=== PATIENT | female | born 1965 | race African-American/Black ===

== ENCOUNTER 2018-01-04 17:22 | Emergency (ER) | payer MEDICAID ==
[~2018-01-04] VITALS: Ht 167.6 cm; Wt 89.0 kg
[~2018-01-04 17:22] MED LIST: AMLO5TAB88 PO; ASPI-1159 PO; ATOR40TA70 PO; CARV6.2548 PO; CLOP75TA33 PO; DOCU-138 PO; GABA-533 PO; HYDR-519 PO; IBUP-2030 PO
[2018-01-04 19:30] LABS: CHLORIDE 105 mEq/L (98-107)
[2018-01-04 19:32] LABS: BASOPHILS % 0.3 % (0.0-2.0); HEMATOCRIT. 34.8 % (36.0-48.0); HEMOGLOBIN. 11.8 g/dL (12.0-16.0); LYMPHOCYTES % 29.3 % (20.0-50.0); MEAN CORPUSCULAR HEMOGLOBIN 31.8 pg (28.0-32.0); MEAN CORPUSCULAR VOLUME 93.4 fL (81.0-99.0); MEAN PLATELET VOLUME 9.8 fl (7.4-10.4); MONOCYTES % 10.2 % (2.0-8.0); NEUTROPHILS % 59.2 % (40.0-76.0); PLATELET 288 x1000/uL (130-400); RED BLOOD CELL COUNT 3.72 mill/uL (4.2-5.4); RED CELL DISTRIBUTION WIDTH 13.2 % (11.6-14.6)
[2018-01-04] MEDS ORDERED: KETOROLAC 60MG/2ML VIAL IM ONE (20:30)
[2018-01-04 20:47] LABS: CLARITY URINE CLOUDY (CLEAR); COLOR URINE YELLOW (YELLOW); KETONES URINE NEGATIVE (NEGATIVE); LEUKOCYTE ESTERASE URINE TRACE (NEGATIVE); NITRITE URINE NEGATIVE (NEGATIVE); OCCULT BLOOD URINE NEGATIVE (NEGATIVE); PROTEIN URINE NEGATIVE (NEGATIVE); SPECIFIC GRAVITY URINE 1.024 (1.005-1.030)
[2018-01-04 21:26] VITALS: BP 156/72
== END 2018-01-04 21:29 | disposition home or self-care (01) ==
LOC: ER 17:22
DX: S39.012A Strain of muscle, fascia and tendon of lower back, initial encounter (principal); E78.00 Pure hypercholesterolemia, unspecified; E11.9 Type 2 diabetes mellitus without complications; I11.9 Hypertensive heart disease without heart failure; Z95.5 Presence of coronary angioplasty implant and graft; W07.XXXA Fall from chair, initial encounter; Y93.89 Activity, other specified; Y92.018 Other place in single-family (private) house as the place of occurrence of the external cause
CPT/HCPCS: 36415; 80053; 81003; 85025; J1885; Z7610

== ENCOUNTER 2018-06-10 09:26 | Inpatient (IN) | payer MEDICAID ==
[~2018-06-10] VITALS: Ht 182.9 cm; Wt 93.2 kg
[2018-06-10] MEDS ORDERED: ACETAMINOPHEN 650MG SUPP PR STA (10:11)
[2018-06-10] MEDS ORDERED: PIPERACILLIN/TAZ 3.375G PREMIX 50 ML IV ONE (10:15)
[2018-06-10] MEDS ORDERED: VANCOMYCIN 1 G PREMIX 200 ML IV ONE (10:15)
[2018-06-10] MEDS ORDERED: SODIUM CHLORIDE 0.9% 1000ML BAG (SEPSIS BOLUS) IV ONE (10:15)
[2018-06-10 10:26] LABS: HEMATOCRIT. 37.1 % (36.0-48.0); HEMOGLOBIN. 12.5 g/dL (12.0-16.0); MEAN CORPUSCULAR HEMOGLOBIN 32.8 pg (28.0-32.0); MEAN CORPUSCULAR VOLUME 96.9 fL (81.0-99.0); MEAN PLATELET VOLUME 10.3 fl (7.4-10.4); PLATELET 165 x1000/uL (130-400); RED BLOOD CELL COUNT 3.82 mill/uL (4.2-5.4); RED CELL DISTRIBUTION WIDTH 14.5 % (11.6-14.6)
[2018-06-10 10:34] LABS: CHLORIDE 99 mEq/L (98-107); INR 1.2; PROTHROMBIN TIME 11.7 sec (9.1-11.1)
[2018-06-10 10:38] LABS: ETHANOL BLOOD < 10 mg/dL
[2018-06-10 10:57] LABS: PLATELET ESTIMATE NORMAL
[2018-06-10 11:32] LABS: BG BASE EXCESS -3.7 mmol/L (-2.0-2.0); BG CARBOXYHEMOGLOBIN 0.3 % (0.5-1.5); BG FRACTION INSPIRED OXYGEN 21; BG HCO3 ACT 18.9 mmol/L (22.0-26.0); BG METHEMOGLOBIN 0.5 % (0.0-1.5); BG OXYHEMOGLOBIN 96.2 % (94.0-97.0); BG PCO2 27.2 mmHg (35.0-45.0); BG PH 7.459 (7.350-7.450); BG PO2 87.6 mmHg (75.0-100.0); BG SAMPLE SITE RIGHT RADIAL; BG TOTAL HEMOGLOBIN 12.4 g/dL (12.0-18.0); BG VENT MODE ROOM AIR
[2018-06-10 16:05] VITALS: BP 161/95
[2018-06-10 16:18] VITALS: BP 161/95
[2018-06-10] MEDS ORDERED: CLONIDINE 0.2MG TABLET PO PRN (17:15)
[2018-06-10] MEDS ORDERED: ACETAMINOPHEN 650MG SUPP PR PRN (17:15)
[2018-06-10] MEDS ORDERED: IPRATROPIUM/ALBUTEROL 0.5-3(2.5)MG/3ML NEB HHN PRN (17:15)
[2018-06-10] MEDS: SODIUM CHLORIDE 0.45% 1,000 ML IV SCH (17:50)
[2018-06-10 18:01] VITALS: BP 200/93
[2018-06-10] MEDS ORDERED: LEVOFLOXACIN 500MG PREMIX 100 ML IV SCH (18:30)
[2018-06-10 20:00] VITALS: BP 161/77
[2018-06-10] MEDS: IPRATROPIUM/ALBUTEROL 0.5-3(2.5)MG/3ML NEB HHN SCH (20:25)
[2018-06-10 20:29] LABS: CLARITY URINE CLEAR (CLEAR); COLOR URINE YELLOW (YELLOW); KETONES URINE 3+ (NEGATIVE); LEUKOCYTE ESTERASE URINE NEGATIVE (NEGATIVE); NITRITE URINE NEGATIVE (NEGATIVE); OCCULT BLOOD URINE 2+ (NEGATIVE); PROTEIN URINE 1+ (NEGATIVE); SPECIFIC GRAVITY URINE 1.025 (1.005-1.030); UROBILINOGEN URINE 0.2 E.U./dL (0.2-1.0)
[2018-06-10] MEDS: CARVEDILOL 6.25 MG TABLET PO SCH (20:38)
[2018-06-10 20:51] LABS: *AMPHETAMINES SCREEN URINE NEGATIVE (NEGATIVE); *BARBITURATES SCREEN URINE NEGATIVE (NEGATIVE); *BENZODIAZEPINES SCREEN URINE NEGATIVE (NEGATIVE); *COCAINE SCREEN URINE NEGATIVE (NEGATIVE); METHADONE URINE SCREEN NEGATIVE (NEGATIVE); OPIATES URINE SCREEN NEGATIVE (NEGATIVE); PHENCYCLIDINE URINE SCREEN NEGATIVE (NEGATIVE)
[2018-06-10 20:52] LABS: CANNABINOID URINE SCREEN NEGATIVE (NEGATIVE)
[2018-06-10 22:00] VITALS: BP 157/86
[2018-06-11] VITALS (12 sets, daily range): BP systolic 125–176; BP diastolic 63–89
[2018-06-11] MEDS: ACETAMINOPHEN 325MG TABLET PO PRN ×3 (00:22→21:26)
[2018-06-11] MEDS: IPRATROPIUM/ALBUTEROL 0.5-3(2.5)MG/3ML NEB HHN SCH ×6 (00:25→20:30)
[2018-06-11 06:16] LABS: HEMATOCRIT 32.3 % (36.0-48.0); HEMOGLOBIN 11.1 g/dL (12.0-16.0); MEAN CORPUSCULAR HEMOGLOBIN 33.1 pg (28.0-32.0); MEAN CORPUSCULAR VOLUME 96.3 fL (81.0-99.0); PLATELET 113 x1000/uL (130-400); RED BLOOD CELL COUNT 3.35 mill/uL (4.2-5.4); RED CELL DISTRIBUTION WIDTH 14.3 % (11.6-14.6)
[2018-06-11 06:56] LABS: CHLORIDE 104 mEq/L (98-107)
[2018-06-11] MEDS: ENOXAPARIN 30MG/0.3ML SYR SUBCUT SCH ×2 (09:25→21:25)
[2018-06-11] MEDS: CARVEDILOL 6.25 MG TABLET PO SCH ×2 (09:26→21:26)
[2018-06-11] MEDS: ATORVASTATIN CALCIUM 40MG TABLET PO SCH (09:26)
[2018-06-11] MEDS: PIPERACILLIN/TAZ 3.375G PREMIX 50 ML IV SCH ×3 (11:38→23:20)
[2018-06-11] MEDS: ASPIRIN 81MG TABLET PO SCH (12:04)
[2018-06-11] MEDS: AMLODIPINE 10MG TABLET PO SCH (12:05)
[2018-06-11] MEDS: CLOPIDOGREL 75MG TABLET PO SCH (12:05)
[2018-06-11] MEDS: SODIUM CHLORIDE 0.45% 1,000 ML IV SCH (13:15)
[2018-06-11] MEDS: FUROSEMIDE 20MG TABLET PO SCH (17:06)
[2018-06-11] MEDS ORDERED: LORAZEPAM 2MG/ML CPJ IV PRN (21:15)
[2018-06-12] VITALS (12 sets, daily range): BP systolic 96–166; BP diastolic 53–96
[2018-06-12] MEDS: HYDROCODONE/ACETAMINOPHEN 5/325MG TABLET PO PRN ×2 (03:23→13:51)
[2018-06-12] MEDS: PIPERACILLIN/TAZ 3.375G PREMIX 50 ML IV SCH (06:15)
[2018-06-12 07:34] LABS: HEMATOCRIT. 30.8 % (36.0-48.0); HEMOGLOBIN. 10.5 g/dL (12.0-16.0); MEAN CORPUSCULAR HEMOGLOBIN 33.1 pg (28.0-32.0); MEAN CORPUSCULAR VOLUME 97.5 fL (81.0-99.0); MEAN PLATELET VOLUME 11.1 fl (7.4-10.4); PLATELET 105 x1000/uL (130-400); RED BLOOD CELL COUNT 3.16 mill/uL (4.2-5.4); RED CELL DISTRIBUTION WIDTH 14.5 % (11.6-14.6)
[2018-06-12 08:02] LABS: CHLORIDE 103 mEq/L (98-107)
[2018-06-12 08:13] LABS: LDL CHOLESTEROL 56 mg/dL (5-100)
[2018-06-12 08:15] LABS: HDL CHOLESTEROL 13 mg/dL (40-59)
[2018-06-12] MEDS: FOLIC ACID 1MG TABLET PO SCH (09:19)
[2018-06-12] MEDS: ASPIRIN 81MG TABLET PO SCH (09:19)
[2018-06-12] MEDS: THIAMINE HCL 100MG TABLET PO SCH (09:19)
[2018-06-12] MEDS: FUROSEMIDE 20MG TABLET PO SCH ×2 (09:20→16:52)
[2018-06-12] MEDS: MULTIVITAMINS,THER W-MINERALS TABLET PO SCH (09:20)
[2018-06-12] MEDS: ATORVASTATIN CALCIUM 40MG TABLET PO SCH (09:20)
[2018-06-12] MEDS: CARVEDILOL 6.25 MG TABLET PO SCH ×2 (09:20→21:02)
[2018-06-12] MEDS: NICOTINE 14MG PATCH TD SCH (09:21)
[2018-06-12] MEDS: SODIUM CHLORIDE 0.45% 1,000 ML IV SCH (09:21)
[2018-06-12] MEDS: CLOPIDOGREL 75MG TABLET PO SCH (09:22)
[2018-06-12] MEDS: ENOXAPARIN 30MG/0.3ML SYR SUBCUT SCH ×2 (09:22→21:03)
[2018-06-12] MEDS: AMLODIPINE 10MG TABLET PO SCH (09:24)
[2018-06-12] MEDS ORDERED: LEVOFLOXACIN 500MG PREMIX 100 ML IV SCH (13:00)
[2018-06-12] MEDS ORDERED: POTASSIUM CHLORIDE 20MEQ TABLET SR PO SCH (13:30)
[2018-06-12] MEDS: LEVOFLOXACIN 500MG PREMIX 100 ML IV SCH (15:36)
[2018-06-12 16:29] LABS: PLATELET ESTIMATE SLIGHTLY DECREASED
[2018-06-12] MEDS: ACETAMINOPHEN 325MG TABLET PO PRN (19:36)
[2018-06-13] VITALS (12 sets, daily range): BP systolic 110–142; BP diastolic 39–74
[2018-06-13] MEDS: HYDROCODONE/ACETAMINOPHEN 5/325MG TABLET PO PRN ×4 (01:22→20:15)
[2018-06-13] MEDS: SODIUM CHLORIDE 0.45% 1,000 ML IV SCH (06:18)
[2018-06-13 06:20] LABS: HEMATOCRIT. 29.7 % (36.0-48.0); HEMOGLOBIN. 10.1 g/dL (12.0-16.0); MEAN CORPUSCULAR HEMOGLOBIN 32.9 pg (28.0-32.0); MEAN CORPUSCULAR VOLUME 97.1 fL (81.0-99.0); MEAN PLATELET VOLUME 10.9 fl (7.4-10.4); PLATELET 129 x1000/uL (130-400); RED BLOOD CELL COUNT 3.06 mill/uL (4.2-5.4); RED CELL DISTRIBUTION WIDTH 14.4 % (11.6-14.6)
[2018-06-13 06:24] LABS: CHLORIDE 101 mEq/L (98-107)
[2018-06-13] MEDS: ASPIRIN 81MG TABLET PO SCH (08:46)
[2018-06-13] MEDS: FUROSEMIDE 20MG TABLET PO SCH ×2 (08:46→16:28)
[2018-06-13] MEDS: CARVEDILOL 6.25 MG TABLET PO SCH ×2 (08:46→20:09)
[2018-06-13] MEDS: FOLIC ACID 1MG TABLET PO SCH (08:47)
[2018-06-13] MEDS: CLOPIDOGREL 75MG TABLET PO SCH (08:47)
[2018-06-13] MEDS: MULTIVITAMINS,THER W-MINERALS TABLET PO SCH (08:47)
[2018-06-13] MEDS: THIAMINE HCL 100MG TABLET PO SCH (08:47)
[2018-06-13] MEDS: ATORVASTATIN CALCIUM 40MG TABLET PO SCH (08:47)
[2018-06-13] MEDS: ENOXAPARIN 30MG/0.3ML SYR SUBCUT SCH ×2 (08:48→20:09)
[2018-06-13] MEDS: AMLODIPINE 10MG TABLET PO SCH (08:48)
[2018-06-13] MEDS: NICOTINE 14MG PATCH TD SCH (08:51)
[2018-06-13] MEDS ORDERED: POTASSIUM CHLORIDE 20MEQ TABLET SR PO SCH (09:05)
[2018-06-13 10:16] LABS: PLATELET ESTIMATE SLIGHTLY DECREASED
[2018-06-13] MEDS: LEVOFLOXACIN 500MG PREMIX 100 ML IV SCH (15:00)
[2018-06-13] MEDS: ACETAMINOPHEN 325MG TABLET PO PRN (16:29)
[2018-06-14] VITALS: BP_SYST 142; BP_DIAS 68; BP_DIAS 75
[2018-06-14] MEDS: SODIUM CHLORIDE 0.45% 1,000 ML IV SCH (01:15)
[2018-06-14 02:00] VITALS: BP 158/71
[2018-06-14 04:00] VITALS: BP_SYST 152; BP_SYST 163; BP_DIAS 79; BP_DIAS 83
[2018-06-14] MEDS: HYDROCODONE/ACETAMINOPHEN 5/325MG TABLET PO PRN ×2 (04:11→09:44)
[2018-06-14 06:16] LABS: HEMATOCRIT 31.8 % (36.0-48.0); HEMOGLOBIN 10.6 g/dL (12.0-16.0); MEAN CORPUSCULAR HEMOGLOBIN 32.5 pg (28.0-32.0); MEAN CORPUSCULAR VOLUME 97.5 fL (81.0-99.0); PLATELET 180 x1000/uL (130-400); RED BLOOD CELL COUNT 3.26 mill/uL (4.2-5.4); RED CELL DISTRIBUTION WIDTH 14.5 % (11.6-14.6)
[2018-06-14 06:31] LABS: CHLORIDE 98 mEq/L (98-107)
[2018-06-14 08:00] VITALS: BP 145/77
[2018-06-14] MEDS: NICOTINE 14MG PATCH TD SCH (09:00)
[2018-06-14] MEDS: AMLODIPINE 10MG TABLET PO SCH (09:41)
[2018-06-14] MEDS: MULTIVITAMINS,THER W-MINERALS TABLET PO SCH (09:41)
[2018-06-14] MEDS: ATORVASTATIN CALCIUM 40MG TABLET PO SCH (09:41)
[2018-06-14] MEDS: CLOPIDOGREL 75MG TABLET PO SCH (09:41)
[2018-06-14] MEDS: FUROSEMIDE 20MG TABLET PO SCH (09:42)
[2018-06-14] MEDS: THIAMINE HCL 100MG TABLET PO SCH (09:42)
[2018-06-14] MEDS: FOLIC ACID 1MG TABLET PO SCH (09:42)
[2018-06-14] MEDS: CARVEDILOL 6.25 MG TABLET PO SCH (09:42)
[2018-06-14] MEDS: ASPIRIN 81MG TABLET PO SCH (09:42)
[2018-06-14] MEDS: ENOXAPARIN 30MG/0.3ML SYR SUBCUT SCH (09:43)
[2018-06-14 10:00] VITALS: BP 138/80
[2018-06-14] MEDS: LEVOFLOXACIN 500MG PREMIX 100 ML IV SCH (10:34)
[2018-06-14 11:41] VITALS: BP 138/80
[2018-06-15] MEDS ORDERED: LEVOFLOXACIN 500MG TABLET PO SCH (11:00)
== END 2018-06-14 13:00 | disposition home or self-care (01) | DRG 720 ==
LOC: ER 09:26 → EDBEDREQ 10:16 → ENRESERV 14:54 → 3WST 15:59
PROVIDERS: ADMIT Internal Medicine; ATTEND Internal Medicine
DX: A41.59 Other Gram-negative sepsis (principal); J96.00 Acute respiratory failure, unspecified whether with hypoxia or hypercapnia; J69.0 Pneumonitis due to inhalation of food and vomit; G93.40 Encephalopathy, unspecified; E11.51 Type 2 diabetes mellitus with diabetic peripheral angiopathy without gangrene; D64.9 Anemia, unspecified; I11.0 Hypertensive heart disease with heart failure; I50.9 Heart failure, unspecified; R65.10 Systemic inflammatory response syndrome (SIRS) of non-infectious origin without acute organ dysfunction; E78.00 Pure hypercholesterolemia, unspecified; F17.210 Nicotine dependence, cigarettes, uncomplicated; F10.20 Alcohol dependence, uncomplicated; I25.10 Atherosclerotic heart disease of native coronary artery without angina pectoris; J44.0 Chronic obstructive pulmonary disease with (acute) lower respiratory infection; Z79.02 Long term (current) use of antithrombotics/antiplatelets; Z79.82 Long term (current) use of aspirin; Z82.49 Family history of ischemic heart disease and other diseases of the circulatory system; Z83.3 Family history of diabetes mellitus; Z95.5 Presence of coronary angioplasty implant and graft; Z79.1 Long term (current) use of non-steroidal anti-inflammatories (NSAID); Z79.899 Other long term (current) drug therapy; Z71.6 Tobacco abuse counseling
CPT/HCPCS: 36415; 36600; 71045; 73080; 74176; 80048; 80061; 80076; 80305; 82140; 82375; 82805; 82962; 83036; 83605; 83735; 83880; 84145; 84484; 85027; 87077; 87186; 93005; 93306; 94640; 97162; 99285; G0482; J1650; J1956; J2543; J3370; J7030; J7620

== ENCOUNTER 2018-06-15 20:29 | Inpatient (IN) | payer MEDICAID ==
[~2018-06-15] VITALS: Ht 172.7 cm; Wt 90.3 kg
[2018-06-16] VITALS (18 sets, daily range): BP systolic 100–160; BP diastolic 63–111
[2018-06-16] MEDS ORDERED: SODIUM CHLORIDE 0.9% 1,000 ML IV ONE ×3 (01:28→16:30)
[2018-06-16] MEDS ORDERED: VANCOMYCIN 1 G PREMIX 200 ML IV SCH (01:30)
[2018-06-16] MEDS ORDERED: PIPERACILLIN/TAZOBACTAM 3.375GM/50ML PREMIX IV ONE (01:30)
[2018-06-16 01:51] LABS: HEMATOCRIT. 30.4 % (36.0-48.0); HEMOGLOBIN. 9.8 g/dL (12.0-16.0); MEAN CORPUSCULAR VOLUME 102.8 fL (81.0-99.0); MEAN PLATELET VOLUME 10.2 fl (7.4-10.4); PLATELET 369 x1000/uL (130-400); RED BLOOD CELL COUNT 2.96 mill/uL (4.2-5.4)
[2018-06-16 01:59] LABS: CHLORIDE 86 mEq/L (98-107)
[2018-06-16] MEDS ORDERED: PIPERACILLIN/TAZ 3.375G PREMIX 50 ML IV SCH (02:15)
[2018-06-16] MEDS ORDERED: HYDROCODONE/ACETAMINOPHEN 5/325MG TABLET PO ONE (02:45)
[2018-06-16 06:53] LABS: PLATELET ESTIMATE NORMAL
[2018-06-16] MEDS ORDERED: INSULIN LISPRO 100 UNITS/ML SUBCUT NR (15:37)
[2018-06-16] MEDS ORDERED: INSULIN GLARGINE UD 100 UNITS/ML SYR SUBCUT SCH (15:45)
[2018-06-16] MEDS ORDERED: DEXTROSE 50% WATER 50ML SYRINGE IV PRN ×2 (16:15)
[2018-06-16] MEDS ORDERED: INSULIN REGULAR (DRIP) 100 UNITS in SODIUM CHLORIDE 0.9% 100 ML IV PRN (16:15)
[2018-06-16 17:20] LABS: BASOPHILS % 0.8 % (0.0-2.0); EOSINOPHILS % 0.3 % (0.0-5.0); HEMATOCRIT. 28.7 % (36.0-48.0); HEMOGLOBIN. 9.4 g/dL (12.0-16.0); MEAN CORPUSCULAR HEMOGLOBIN 32.5 pg (28.0-32.0); MEAN CORPUSCULAR VOLUME 98.9 fL (81.0-99.0); MEAN PLATELET VOLUME 10.1 fl (7.4-10.4); MONOCYTES % 16.1 % (2.0-8.0); NEUTROPHILS % 75.8 % (40.0-76.0); PLATELET 390 x1000/uL (130-400)
[2018-06-16 17:27] LABS: CHLORIDE 98 mEq/L (98-107)
[2018-06-16 17:37] LABS: BETA HYDROXYBUTYRATE 2.7 mMol/L (0.0-0.3)
[2018-06-16] MEDS: BLOOD SUGAR DIAGNOSTIC STRIP TEST SCH ×5 (18:57→23:50)
[2018-06-16] MEDS: ATORVASTATIN CALCIUM 40MG TABLET PO SCH (20:34)
[2018-06-16] MEDS: PIPERACILLIN/TAZ 3.375G PREMIX 50 ML IV SCH (20:34)
[2018-06-16] MEDS: CARVEDILOL 6.25 MG TABLET PO SCH (20:34)
[2018-06-16] MEDS: ACETAMINOPHEN 325MG TABLET PO PRN (23:53)
[2018-06-17] VITALS (41 sets, daily range): BP systolic 102–158; BP diastolic 55–103
[2018-06-17] MEDS: BLOOD SUGAR DIAGNOSTIC STRIP TEST SCH ×10 (00:22→20:59)
[2018-06-17] MEDS: SODIUM CHL 0.9% + KCL 20MEQ/L 1,000 ML IV SCH ×3 (00:26→18:54)
[2018-06-17] MEDS ORDERED: POTASSIUM CHLORIDE INJ 40 MEQ in DEXT 5% WATER 500 ML IV SCH ×2 (02:00→03:00)
[2018-06-17] MEDS: PIPERACILLIN/TAZ 3.375G PREMIX 50 ML IV SCH ×4 (03:46→22:19)
[2018-06-17] MEDS: INSULIN LISPRO 100 UNITS/ML SUBCUT SCH ×7 (08:14→20:59)
[2018-06-17] MEDS ORDERED: DEXTROSE 50% WATER 50ML SYRINGE IV PRN ×2 (08:15)
[2018-06-17] MEDS: CARVEDILOL 6.25 MG TABLET PO SCH ×2 (09:19→20:57)
[2018-06-17] MEDS: CLOPIDOGREL 75MG TABLET PO SCH (09:19)
[2018-06-17] MEDS: INSULIN GLARGINE UD 100 UNITS/ML SYR SUBCUT SCH ×2 (09:21→22:17)
[2018-06-17] MEDS ORDERED: ONDANSETRON HCL 4MG/2ML INJ IV PRN (14:00)
[2018-06-17] MEDS: IPRATROPIUM/ALBUTEROL 0.5-3(2.5)MG/3ML NEB HHN PRN (14:15)
[2018-06-17] MEDS: ACETAMINOPHEN 325MG TABLET PO PRN (19:43)
[2018-06-17] MEDS: ATORVASTATIN CALCIUM 40MG TABLET PO SCH (20:57)
[2018-06-18] VITALS (26 sets, daily range): BP systolic 115–157; BP diastolic 58–110
[2018-06-18] MEDS: IPRATROPIUM/ALBUTEROL 0.5-3(2.5)MG/3ML NEB HHN PRN (01:30)
[2018-06-18 05:33] LABS: HEMATOCRIT. 31.2 % (36.0-48.0); HEMOGLOBIN. 10.4 g/dL (12.0-16.0); MEAN CORPUSCULAR HEMOGLOBIN 32.2 pg (28.0-32.0); MEAN CORPUSCULAR VOLUME 96.5 fL (81.0-99.0); PLATELET 562 x1000/uL (130-400); RED BLOOD CELL COUNT 3.24 mill/uL (4.2-5.4); RED CELL DISTRIBUTION WIDTH 15.1 % (11.6-14.6)
[2018-06-18 05:42] LABS: CHLORIDE 110 mEq/L (98-107)
[2018-06-18] MEDS: SODIUM CHL 0.9% + KCL 20MEQ/L 1,000 ML IV SCH ×2 (05:51→21:10)
[2018-06-18] MEDS: PIPERACILLIN/TAZ 3.375G PREMIX 50 ML IV SCH ×3 (06:17→21:10)
[2018-06-18] MEDS: BLOOD SUGAR DIAGNOSTIC STRIP TEST SCH ×4 (06:30→21:10)
[2018-06-18] MEDS: INSULIN LISPRO 100 UNITS/ML SUBCUT SCH ×7 (06:37→21:00)
[2018-06-18] MEDS: CLOPIDOGREL 75MG TABLET PO SCH (08:03)
[2018-06-18] MEDS: CARVEDILOL 6.25 MG TABLET PO SCH ×2 (08:04→21:09)
[2018-06-18] MEDS: INSULIN GLARGINE UD 100 UNITS/ML SYR SUBCUT SCH ×2 (10:33→21:12)
[2018-06-18 14:10] LABS: PLATELET ESTIMATE INCREASED
[2018-06-18 19:05] LABS: CLARITY URINE CLOUDY (CLEAR); COLOR URINE YELLOW (YELLOW); KETONES URINE NEGATIVE (NEGATIVE); LEUKOCYTE ESTERASE URINE NEGATIVE (NEGATIVE); NITRITE URINE NEGATIVE (NEGATIVE); OCCULT BLOOD URINE NEGATIVE (NEGATIVE); PH URINE 5.5 (4.5-8.0); PROTEIN URINE TRACE (NEGATIVE); SPECIFIC GRAVITY URINE 1.017 (1.005-1.030)
[2018-06-18] MEDS: ATORVASTATIN CALCIUM 40MG TABLET PO SCH (21:09)
[2018-06-18] MEDS: ACETAMINOPHEN 325MG TABLET PO PRN (21:09)
[2018-06-18] MEDS: ENOXAPARIN 30MG/0.3ML SYR SUBCUT SCH (21:11)
[2018-06-19] VITALS: BP 121/68
[2018-06-19] MEDS: PIPERACILLIN/TAZ 3.375G PREMIX 50 ML IV SCH ×3 (03:04→14:01)
[2018-06-19 04:00] VITALS: BP 143/72
[2018-06-19] MEDS: BLOOD SUGAR DIAGNOSTIC STRIP TEST SCH ×2 (06:45→12:20)
[2018-06-19] MEDS: INSULIN LISPRO 100 UNITS/ML SUBCUT SCH ×4 (07:20→14:03)
[2018-06-19 07:53] LABS: BASOPHILS % 0.4 % (0.0-2.0); EOSINOPHILS % 1.1 % (0.0-5.0); HEMATOCRIT. 26.6 % (36.0-48.0); HEMOGLOBIN. 9.1 g/dL (12.0-16.0); LYMPHOCYTES % 12.7 % (20.0-50.0); MEAN CORPUSCULAR HEMOGLOBIN 32.7 pg (28.0-32.0); MEAN CORPUSCULAR VOLUME 95.9 fL (81.0-99.0); MEAN PLATELET VOLUME 9.1 fl (7.4-10.4); MONOCYTES % 9.3 % (2.0-8.0); NEUTROPHILS % 76.5 % (40.0-76.0); PLATELET 534 x1000/uL (130-400); RED BLOOD CELL COUNT 2.77 mill/uL (4.2-5.4); RED CELL DISTRIBUTION WIDTH 14.8 % (11.6-14.6)
[2018-06-19 08:00] VITALS: BP 162/79
[2018-06-19] MEDS: SODIUM CHL 0.9% + KCL 20MEQ/L 1,000 ML IV SCH ×2 (08:00→14:01)
[2018-06-19] MEDS: CLOPIDOGREL 75MG TABLET PO SCH (10:04)
[2018-06-19] MEDS: ENOXAPARIN 30MG/0.3ML SYR SUBCUT SCH (10:05)
[2018-06-19] MEDS: CARVEDILOL 6.25 MG TABLET PO SCH (10:05)
[2018-06-19] MEDS: INSULIN GLARGINE UD 100 UNITS/ML SYR SUBCUT SCH (10:06)
[2018-06-19] MEDS: ACETAMINOPHEN 325MG TABLET PO PRN (10:07)
[2018-06-19 12:00] VITALS: BP 151/75
[2018-06-19 15:09] LABS: CHLORIDE 112 mEq/L (98-107)
[2018-06-19 16:00] VITALS: BP 117/75
== END 2018-06-19 18:15 | disposition home or self-care (01) | DRG 469 ==
LOC: ER 22:16 → EDBEDREQTM 06-16 01:27 → EDBEDREQ 06-16 01:27 → ENRESERV 06-16 14:29 → CANRESERV 06-16 14:29 → EDBEDREQTM 06-16 16:14 → EDBEDREQ 06-16 16:14 → EDBEDREQSVC 06-16 16:14 → SUPCPDRO 06-16 17:20 → MICUSO 06-16 17:30 → ENRESERV 06-16 17:30 → 6WST 06-18 11:07
PROVIDERS: ADMIT Internal Medicine; ATTEND Internal Medicine
DX: N17.0 Acute kidney failure with tubular necrosis (principal); J96.00 Acute respiratory failure, unspecified whether with hypoxia or hypercapnia; E43 Unspecified severe protein-calorie malnutrition; E11.10 Type 2 diabetes mellitus with ketoacidosis without coma; J18.9 Pneumonia, unspecified organism; E11.22 Type 2 diabetes mellitus with diabetic chronic kidney disease; R65.10 Systemic inflammatory response syndrome (SIRS) of non-infectious origin without acute organ dysfunction; E87.1 Hypo-osmolality and hyponatremia; F17.200 Nicotine dependence, unspecified, uncomplicated; I12.9 Hypertensive chronic kidney disease with stage 1 through stage 4 chronic kidney disease, or unspecified chronic kidney disease; R74.0 Nonspecific elevation of levels of transaminase and lactic acid dehydrogenase [LDH]; I25.10 Atherosclerotic heart disease of native coronary artery without angina pectoris; N18.9 Chronic kidney disease, unspecified; I25.2 Old myocardial infarction; Z79.4 Long term (current) use of insulin; Z95.5 Presence of coronary angioplasty implant and graft; Z98.891 History of uterine scar from previous surgery
CPT/HCPCS: 36415; 71045; 80048; 82010; 82962; 83880; 84484; 85007; 85027; 93005; 94640; 96365; 96367; 97162; 99291; 99406; J1650; J1815; J2405; J2543; J3370; J3480; J7030; J7050; J7060; J7620

== ENCOUNTER 2019-02-19 15:37 | Emergency (ER) | payer MEDICAID ==
[~2019-02-19] VITALS: Ht 172.7 cm; Wt 88.0 kg
[~2019-02-19 15:37] MED LIST changes: -ASPI-1159 PO; +ASPI-1393 PO
[2019-02-19 17:04] LABS: CHLORIDE 104 mEq/L (98-107)
[2019-02-19 18:15] LABS: CLARITY URINE CLEAR (CLEAR); COLOR URINE YELLOW (YELLOW); KETONES URINE NEGATIVE (NEGATIVE); LEUKOCYTE ESTERASE URINE NEGATIVE (NEGATIVE); NITRITE URINE NEGATIVE (NEGATIVE); OCCULT BLOOD URINE NEGATIVE (NEGATIVE); PROTEIN URINE NEGATIVE (NEGATIVE); SPECIFIC GRAVITY URINE 1.006 (1.005-1.030); UROBILINOGEN URINE 0.2 E.U./dL (0.2-1.0)
[2019-02-19 19:56] VITALS: BP 155/85
== END 2019-02-19 19:57 | disposition home or self-care (01) ==
LOC: ER 16:00
DX: R10.11 Right upper quadrant pain (principal); M25.572 Pain in left ankle and joints of left foot; I25.2 Old myocardial infarction; D64.9 Anemia, unspecified; E11.9 Type 2 diabetes mellitus without complications; I10 Essential (primary) hypertension; Z79.899 Other long term (current) drug therapy; Z98.890 Other specified postprocedural states
CPT/HCPCS: 36415; 73600; 99284

== ENCOUNTER 2021-04-08 15:32 | Emergency (ER) | payer MEDICAID ==
[~2021-04-08] VITALS: Ht 172.7 cm; Wt 75.5 kg
[~2021-04-08 15:32] MED LIST changes: -ASPI-1393 PO; +ASPI-1497 PO; +IBUP-2029 MT; +METH-653 MT
[2021-04-08] MEDS ORDERED: MAGNESIUM/ALUMINUM HYDROXIDE/SIMETHICONE 30ML UDC PO STA (17:36)
[2021-04-08] MEDS ORDERED: VISCOUS LIDOCAINE 2% 15 ML UDC PO STA (17:36)
[2021-04-08 18:00] LABS: CLARITY URINE CLEAR (CLEAR); COLOR URINE YELLOW (YELLOW); KETONES URINE TRACE (NEGATIVE); LEUKOCYTE ESTERASE URINE NEGATIVE (NEGATIVE); NITRITE URINE NEGATIVE (NEGATIVE); OCCULT BLOOD URINE NEGATIVE (NEGATIVE); PROTEIN URINE NEGATIVE (NEGATIVE)
[2021-04-08 19:07] LABS: BASOPHILS % 0.8 % (0.0-2.0); EOSINOPHILS % 1.6 % (0.0-5.0); HEMATOCRIT. 34.4 % (36.0-48.0); HEMOGLOBIN. 11.9 g/dL (12.0-16.0); LYMPHOCYTES % 38.6 % (20.0-50.0); MEAN CORPUSCULAR HEMOGLOBIN 33.2 pg (28.0-32.0); MEAN CORPUSCULAR VOLUME 96.6 fL (81.0-99.0); MEAN PLATELET VOLUME 9.1 fl (7.4-10.4); MONOCYTES % 11.6 % (2.0-8.0); NEUTROPHILS % 47.4 % (40.0-76.0); PLATELET 255 x1000/uL (130-400); RED BLOOD CELL COUNT 3.57 mill/uL (4.2-5.4); RED CELL DISTRIBUTION WIDTH 12.8 % (11.6-14.6)
[2021-04-08 19:13] LABS: CHLORIDE 106 mEq/L (98-107)
[2021-04-08] MEDS ORDERED: HYDR-4001 MT (20:07)
[2021-04-08] MEDS ORDERED: AMOX-424 MT (20:07)
[2021-04-08 21:45] VITALS: BP 136/86
== END 2021-04-08 22:14 | disposition home or self-care (01) ==
LOC: ER 15:32
DX: K52.9 Noninfective gastroenteritis and colitis, unspecified (principal); R10.9 Unspecified abdominal pain; I11.9 Hypertensive heart disease without heart failure; E11.9 Type 2 diabetes mellitus without complications; I25.10 Atherosclerotic heart disease of native coronary artery without angina pectoris; Z79.82 Long term (current) use of aspirin
CPT/HCPCS: 36415; 74176; 80053; 81003; 81025; 84484; 85025; 99284

== ENCOUNTER 2021-12-07 14:46 | Emergency (ER) | payer MEDICAID ==
[~2021-12-07] VITALS: Ht 172.7 cm; Wt 73.1 kg
[~2021-12-07 14:46] MED LIST changes: +AMOX-424 MT; +HYDR-4001 MT
[2021-12-07] MEDS ORDERED: ACETAMINOPHEN WITH CODEINE 300/30MG TABLET PO ONE (16:00)
[2021-12-07 16:11] LABS: BASOPHILS % 0.8 % (0.0-2.0); EOSINOPHILS % 1.3 % (0.0-5.0); HEMATOCRIT. 35.3 % (36.0-48.0); HEMOGLOBIN. 11.9 g/dL (12.0-16.0); LYMPHOCYTES % 40.3 % (20.0-50.0); MEAN CORPUSCULAR HEMOGLOBIN 32.2 pg (28.0-32.0); MEAN CORPUSCULAR VOLUME 95.4 fL (81.0-99.0); MEAN PLATELET VOLUME 9.6 fl (7.4-10.4); MONOCYTES % 10.3 % (2.0-8.0); NEUTROPHILS % 47.3 % (40.0-76.0); PLATELET 217 x1000/uL (130-400); RED CELL DISTRIBUTION WIDTH 12.7 % (11.6-14.6)
[2021-12-07 16:18] LABS: CHLORIDE 105 mEq/L (98-107)
[2021-12-07] MEDS ORDERED: METH-653 MT (16:43)
[2021-12-07 16:58] VITALS: BP 143/76
== END 2021-12-07 16:59 | disposition home or self-care (01) ==
LOC: ER 14:46
DX: M79.10 Myalgia, unspecified site (principal); I10 Essential (primary) hypertension; Z98.890 Other specified postprocedural states; Z79.899 Other long term (current) drug therapy
CPT/HCPCS: 36415; 80053; 85025; 99283

== ENCOUNTER 2022-09-26 17:05 | Emergency (ER) | payer MEDICAID ==
[~2022-09-26] VITALS: Ht 175.3 cm; Wt 69.0 kg
[2022-09-26 17:32] VITALS: BP 114/62
[2022-09-26] MEDS ORDERED: ACETAMINOPHEN 325MG TABLET PO ONE (22:15)
== END 2022-09-26 22:10 | disposition left against medical advice (07) ==
LOC: ER 17:05
DX: Z53.21 Procedure and treatment not carried out due to patient leaving prior to being seen by health care provider (principal)

== ENCOUNTER 2023-11-26 12:58 | Emergency (ER) | payer MEDICAID, OTHER ==
[~2023-11-26] VITALS: Ht 167.6 cm; Wt 68.5 kg
[~2023-11-26 12:58] MED LIST changes: -GABA-533 PO; +GABA-534 PO
[2023-11-26 13:06] VITALS: O2SAT 99
[2023-11-26] MEDS ORDERED: VANCOMYCIN 1G PREMIX 200 ML IV ONE (13:30)
[2023-11-26 14:16] LABS: EOSINOPHILS % 0.7 % (0.0-5.0); HEMATOCRIT. 35.6 % (36.0-48.0); HEMOGLOBIN. 11.8 g/dL (12.0-16.0); LYMPHOCYTES % 21.6 % (20.0-50.0); MEAN CORPUSCULAR HEMOGLOBIN 31.5 pg (28.0-32.0); MEAN CORPUSCULAR HGB CONC 33.2 g/dL (31.0-37.0); MEAN PLATELET VOLUME 9.8 fl (7.4-10.4); MONOCYTES % 8.1 % (2.0-8.0); NEUTROPHILS % 68.6 % (40.0-76.0); PLATELET 230 x1000/uL (130-400); RED BLOOD CELL COUNT 3.75 mill/uL (4.2-5.4); RED CELL DISTRIBUTION WIDTH 13.6 % (11.6-14.6)
[2023-11-26 14:21] LABS: CHLORIDE 104 mEq/L (98-107); SODIUM 136 mEq/L (136-145)
[2023-11-26 14:22] LABS: CALCIUM 9.8 mg/dL (8.7-10.4); CARBON DIOXIDE 27 mEq/L (21-32)
[2023-11-26 14:25] LABS: PROTHROMBIN TIME 11.1 sec (9.6-11.0)
[2023-11-26 14:27] LABS: CREATININE 0.7 mg/dL (0.6-1.0); GLUCOSE 323 mg/dL (70-105); UREA NITROGEN BLOOD 9 mg/dL (9-23)
[2023-11-26 14:29] LABS: ALANINE AMINOTRANSFERASE 11 IU/L (10-49); ALBUMIN 4.4 g/dL (3.2-4.8); ASPARTATE AMINOTRANSFERASE 14 IU/L (<34); BILIRUBIN TOTAL 0.9 mg/dL (0.1-1.0); PROTEIN TOTAL 6.9 g/dL (6.0-8.3)
[2023-11-26 14:36] LABS: BETA HYDROXYBUTYRATE < 0.1 mMol/L (0.0-0.3)
[2023-11-26 15:19] LABS: ERYTHROCYTE SEDIMENTATION RATE 36 mm/hr (0-30)
[2023-11-26] MEDS: PIPERACILLIN/TAZO 3.375G/50ML 50 ML IV ONE (15:42)
[2023-11-26] MEDS: ACETAMINOPHEN 325MG TABLET PO STA (15:42)
[2023-11-26] MEDS: VANCOMYCIN 1G PREMIX 200 ML IV ONE (15:43)
[2023-11-26] MEDS: ACETAMINOPHEN 325MG TABLET PO SCH (16:00)
[2023-11-26 17:28] VITALS: BP 158/77; PULSE 75; RESP 18; TEMP 97.9
== END 2023-11-26 17:52 | disposition short-term general hospital (02) ==
LOC: ER 12:58 → EDBEDREQ 14:54 → ER 17:52
DX: M79.89 Other specified soft tissue disorders (principal); E11.9 Type 2 diabetes mellitus without complications; I10 Essential (primary) hypertension
CPT/HCPCS: 80053; 82010; 82962; 83605; 85025; 85610; 85651; 87040; 36415; 84145; 73630; 93005; 96367; 96365; 99285; J2543; J3370; Z7610 ×2